=== PATIENT | male | born 1950 | race Native Hawaiian/Other Pacific Islander ===

== ENCOUNTER 2018-11-01 09:25 | Outpatient (CLI) | payer OTHER ==
[~2018-11-01 09:25] MED LIST: ASA LO-DOSE81 MG PO; ATENOLOL25 MG PO; CO Q 1010 MG; FENOFIBRATE160 MG; PRAVASTATIN20 MG; SAW PALMETTO1 CAP; VIAGRA100 MG
[2018-11-01 09:44] LABS: PLATELET COUNT 269 K/uL (142-355)
[2018-11-01 10:15] LABS: POTASSIUM 4.4 mmol/L (3.6-5.2)
== END 2018-11-01 19:09 | disposition home or self-care (01) ==
LOC: LABW 09:25
PROVIDERS: Internal Medicine
DX: I10 Essential (primary) hypertension (principal); Z12.5 Encounter for screening for malignant neoplasm of prostate
CPT/HCPCS: 36415; 80053; 80061; 81000; 84153; 84439; 84443; 85027

== ENCOUNTER 2019-10-06 09:50 | Outpatient (CLI) | payer OTHER ==
[2019-10-06 10:20] LABS: PLATELET COUNT 329 K/uL (142-355)
[2019-10-06 10:39] LABS: POTASSIUM 4.1 mmol/L (3.6-5.2)
== END 2019-10-06 19:05 | disposition home or self-care (01) ==
LOC: LABW 09:50
PROVIDERS: Internal Medicine
DX: Z00.00 Encounter for general adult medical examination without abnormal findings (principal); Z12.5 Encounter for screening for malignant neoplasm of prostate; I10 Essential (primary) hypertension; N40.0 Benign prostatic hyperplasia without lower urinary tract symptoms
CPT/HCPCS: 36415; 80053; 80061; 81000; 84153; 84439; 84443; 85027

== ENCOUNTER 2019-10-15 09:27 | Outpatient (CLI) | payer OTHER | END 2019-10-15 20:53 | disposition home or self-care (01) | LOC: CT 09:27 | DX: Z12.2 Encounter for screening for malignant neoplasm of respiratory organs (principal); F17.210 Nicotine dependence, cigarettes, uncomplicated | CPT/HCPCS: G0297-TC ==

== ENCOUNTER 2022-06-26 10:19 | Emergency (ER) | payer OTHER ==
[~2022-06-26] VITALS: Ht 162.6 cm; Wt 72.6 kg
[2022-06-26 10:20] VITALS: BP 137/62; TEMP 98
[2022-06-26 10:59] LABS: PLATELET COUNT 236 K/uL (142-355)
[2022-06-26 11:04] LABS: POTASSIUM 3.7 mmol/L (3.6-5.2)
== END 2022-06-26 15:08 | disposition home or self-care (01) ==
LOC: ED 10:19
PROVIDERS: Emergency Medicine Emergency Medical Services
DX: R19.7 Diarrhea, unspecified (principal); E86.0 Dehydration
CPT/HCPCS: 80053; 81000; 82150; 83690; 85027; 96360; 96361; 96374; 96375; 99283; 99284; J3490